=== PATIENT | female | born 1945 | race Caucasian/White ===

== ENCOUNTER 2020-11-02 14:07 | Emergency (ER) | payer MEDICARE, OTHER ==
[~2020-11-02] VITALS: Ht 154.9 cm; Wt 63.0 kg
[2020-11-02] MEDS ORDERED: PLEASE ENTER ALLERGIES MC SCH (14:30)
[2020-11-02] MEDS ORDERED: PROPOFOL 10 MG/ML, 20ML IVPush ONE ×2 (14:30→15:30)
[2020-11-02 14:42] LABS: BASOPHILS % (AUTO) 1 % (0-1); EOSINOPHILS % (AUTO) 1 % (1-7); LYMPHOCYTES % (AUTO) 19 % (22-44); MEAN CORPUSCULAR HEMOGLOBIN 31.3 pg (27.0-34.8); MEAN CORPUSCULAR HGB CONC 33.8 g/dL (32.4-35.8); MONOCYTES % (AUTO) 6 % (2-9); NEUTROPHILS % (AUTO) 73 % (42-75); PLATELET COUNT 370 x10^3/uL (130-400); RED BLOOD COUNT 4.28 x10^6/uL (3.82-5.3); RED CELL DISTRIBUTION WIDTH 14.3 % (9.6-15.2)
[2020-11-02] MEDS ORDERED: PROPOFOL 10 MG/ML, 20ML ONE (14:48)
[2020-11-02 14:50] LABS: ANION GAP 4 mmol/L (5-15); CALCIUM 8.8 mg/dL (8.5-10.1); CHLORIDE 112 mmol/L (98-107); CREATININE 0.48 mg/dL (0.55-1.02)
[2020-11-02 14:54] LABS: TROPONIN I < 0.015 ng/mL (0.000-0.045)
--- NOTE | 2020-11-02 15:31 | NUR ---
chloe millan was in room, cardioverted, see paper charting. pt in SR, vss, waking quickly. as
[2020-11-02 16:18] VITALS: BP 143/89
== END 2020-11-02 16:49 | disposition home or self-care (01) ==
LOC: ED 15:30
DX: I48.0 Paroxysmal atrial fibrillation (principal); F17.200 Nicotine dependence, unspecified, uncomplicated
CPT/HCPCS: 36415; 71045; 80048; 82040; 84484; 85025; 92960; 93005; 99152; 99285; J2704